=== PATIENT | male | born 1935 | race Caucasian/White ===

== ENCOUNTER → 2023-10-01 11:50 | Outpatient (REF) | payer OTHER, SELFPAY | LOC: RAD 11:50 | PROVIDERS: ATTENDING PHYSICIAN Internal Medicine Cardiovascular Disease; FAMILY PHYSICIAN Physician Assistant Medical | DX: R06.01 Orthopnea (principal) | CPT/HCPCS: 71046 ==

== ENCOUNTER → 2023-10-22 15:50 | Outpatient (REF) | payer OTHER, SELFPAY | LOC: RCS 15:50 | PROVIDERS: ATTENDING PHYSICIAN Internal Medicine Cardiovascular Disease; FAMILY PHYSICIAN Physician Assistant Medical | DX: R06.01 Orthopnea (principal) | CPT/HCPCS: 93306 ==

== ENCOUNTER → 2024-02-15 13:24 | Outpatient (REF) | payer OTHER, SELFPAY | LOC: RAD 13:24 | PROVIDERS: ATTENDING PHYSICIAN Nurse Practitioner Family; FAMILY PHYSICIAN Physician Assistant Medical | DX: T14.8XXD Other injury of unspecified body region, subsequent encounter (principal) | CPT/HCPCS: 93922; 93925 ==

== ENCOUNTER → 2024-03-21 09:18 | Day surgery (SDC) | payer OTHER, SELFPAY ==
[2024-03-21 09:45] VITALS: BMI 29.4
[2024-03-21 09:50] LABS: Hematocrit 42.3 % (39.0-52.0); Hemoglobin 13.9 g/dL (13.0-18.0); Mean Corp Hgb Conc. 32.9 g/dL (33.0-37.0); Mean Corpuscular Hgb 29.6 pg (27.0-31.0); Mean Corpuscular Volume 90.2 fL (80.0-94.0); Mean Platelet Volume 9.6 fL (7.4-10.4); Platelet Count 160 10^3/uL (130-400); Red Blood Cell Count 4.69 10^6/uL (4.70-6.10); Red Cell Dist. Width 13.5 % (11.5-14.5); White Blood Cell Count 5.6 10^3/uL (4.8-10.8)
[2024-03-21 10:04] LABS: Blood Urea Nitrogen 18 mg/dl (9-20); Calcium 8.8 mg/dl (8.4-10.2); Carbon Dioxide 30 mmol/L (22-30); Chloride 104 mmol/L (98-107); Estimated Creatinine Clearance 51 ml/min; Glucose 105 mg/dl (70-99); Potassium 4.5 mmol/L (3.5-5.1); Sodium 140 mmol/L (135-145); eGFR > 60.00
--- NOTE | 2024-03-21 10:23 | W.PN.UPDATE ---
Update Note
Progress Note Update
Daughter reluctant to move forward with arteriogram and possible endovascular intervention today due to her father's dementia and declining cognitive function. She reports that he seemed worse this morning compared to his baseline and he was
somewhat combative while leaving the house. She is concerned about anesthesia administration and the possibility that he may have to stay in the hospital. She does not want to move forward with the procedure today. I have asked her to contact me
later on my cell to discuss options further.
[2024-03-21 10:27] LABS: PT 13.5 Sec (11.4-14.6)
[2024-03-21 10:28] LABS: APTT 29.2 Sec (23.4-35.0)
== END ==
LOC: CATH 09:18
PROVIDERS: ATTENDING PHYSICIAN Surgery Vascular Surgery; FAMILY PHYSICIAN Physician Assistant Medical; OTHER PHYSICIAN Internal Medicine Cardiovascular Disease
DX: I70.299 Other atherosclerosis of native arteries of extremities, unspecified extremity (principal); Z53.09 Procedure and treatment not carried out because of other contraindication; F03.90 Unspecified dementia, unspecified severity, without behavioral disturbance, psychotic disturbance, mood disturbance, and anxiety; Z87.891 Personal history of nicotine dependence
CPT/HCPCS: 80048; 85027; 85610; 85730

== ENCOUNTER → 2024-05-05 12:45 | Outpatient (REF) | payer OTHER, SELFPAY | LOC: WOUND 12:45 | PROVIDERS: ATTENDING PHYSICIAN Surgery | DX: L89.513 Pressure ulcer of right ankle, stage 3 (principal); L97.312 Non-pressure chronic ulcer of right ankle with fat layer exposed; I70.299 Other atherosclerosis of native arteries of extremities, unspecified extremity; I70.233 Atherosclerosis of native arteries of right leg with ulceration of ankle; G30.9 Alzheimer's disease, unspecified | CPT/HCPCS: 73610; 99204 ==